=== PATIENT | female | born 1990 | race Hispanic/Latino ===

== ENCOUNTER 2022-02-25 05:35 | Emergency (ER) | payer BC ==
[~2022-02-25] VITALS: Ht 162.6 cm; Wt 63.5 kg
[2022-02-25] MEDS ORDERED: HYDROXYZINE HCL 25 MG TAB PO STA (05:44)
[2022-02-25] MEDS ORDERED: FAMOTIDINE 20 MG TAB PO STA (05:44)
[2022-02-25] MEDS ORDERED: PREDNISONE 20 MG TAB PO STA (05:44)
[2022-02-25] MEDS ORDERED: PREDNISONE 20 MG TAB ONE (06:02)
[2022-02-25] MEDS ORDERED: FAMOTIDINE 20 MG TAB ONE (06:02)
[2022-02-25] MEDS ORDERED: PREDNISONE20 MG PO (06:09)
[2022-02-25] MEDS ORDERED: PEPCID20 MG PO (06:09)
[2022-02-25] MEDS ORDERED: HYDROXYZINE HCL25 MG PO (06:09)
== END 2022-02-25 06:27 | disposition home or self-care (01) ==
LOC: FSED 05:41
DX: R21 Rash and other nonspecific skin eruption (principal)
CPT/HCPCS: 99282; J7512

== ENCOUNTER 2025-07-18 17:40 | Emergency (ER) | payer SELFPAY ==
[~2025-07-18] VITALS: Ht 162.6 cm; Wt 63.5 kg
[~2025-07-18 17:40] MED LIST: HYDROXYZINE HCL25 MG PO; PEPCID20 MG PO; PREDNISONE20 MG PO
[2025-07-18 19:35] VITALS: TEMP 98.1
[2025-07-18] MEDS ORDERED: HYDROCODON-ACE1 EA11 PO (20:28)
[2025-07-18 20:39] VITALS: PULSE 56; RESP 18
[2025-07-18] MEDS: HYDROCODONE/APAP 5MG-325MG TAB PO ONE (20:39)
[2025-07-18 21:23] VITALS: BP 118/81; PULSE 73; RESP 18; TEMP 98.3; O2SAT 100
== END 2025-07-18 21:15 | disposition home or self-care (01) ==
LOC: ER 20:03
DX: S62.640A Nondisplaced fracture of proximal phalanx of right index finger, initial encounter for closed fracture (principal); W01.0XXA Fall on same level from slipping, tripping and stumbling without subsequent striking against object, initial encounter; Y93.01 Activity, walking, marching and hiking; Y92.89 Other specified places as the place of occurrence of the external cause
CPT/HCPCS: 81025; 99284